=== PATIENT | male | born 1940 | race Caucasian/White ===

== ENCOUNTER 2019-03-18 09:19 | Emergency (ER) | payer OTHER, MEDICARE ==
[~2019-03-18] VITALS: Ht 172.7 cm; Wt 99.8 kg
[2019-03-18 09:25] VITALS: BP_SYST 121
--- NOTE | 2019-03-18 09:25 | NUR ---
Patient to ER bed to gown for evaluation. Side rails up.
--- NOTE | 2019-03-18 09:28 | NUR ---
Patient presented to ER with C/O knee swellin. Patient A&Ox4, arrived to ER via wheelchair with , afebrile, denies pain, left knee swelling, denies N/V/D. Patient states he fell Thursday at home in backyard, Patient states he twisted knee. Patient states health hx Colon Cancer sx, gallbladder sx, cardiac sx. Patient also states he was discharged from [facility] Thursday, 5 day hospital admission for blood transfusion. Patient states he is scheduled for upper GI endoscopy Thursday.
--- NOTE | 2019-03-18 09:39 | NUR ---
DR LAN AT BEDSIDE FOR EVALUATION
--- NOTE | 2019-03-18 09:57 | NUR ---
Radiology staff at bedside for portable x-ray.
--- NOTE | 2019-03-18 11:20 | NUR ---
Patient given written and verbal discharge instructions and verbalizes understanding. ER MD discussed with patient the results and treatment provided. Patient in stable condition. ID arm band removed. No Rx given. Patient educated on pain management and to follow up with PMD. Pain Scale 2/10 tolerable for patient. Opportunity for questions provided and answered. Medication side effect fact sheet provided.
[2019-03-18 11:24] VITALS: BP_SYST 118
== END 2019-03-18 11:20 | disposition home or self-care (01) ==
LOC: SED 09:19
DX: S86.812A Strain of other muscle(s) and tendon(s) at lower leg level, left leg, initial encounter (principal); I10 Essential (primary) hypertension; X50.1XXA Overexertion from prolonged static or awkward postures, initial encounter; Y93.89 Activity, other specified; Y92.89 Other specified places as the place of occurrence of the external cause; Y99.8 Other external cause status
CPT/HCPCS: 73564; 99283

== ENCOUNTER 2020-09-15 12:04 | Emergency (ER) | payer OTHER, MEDICARE ==
[~2020-09-15] VITALS: Ht 172.7 cm; Wt 90.7 kg
[2020-09-15 12:19] VITALS: BP_SYST 150
[2020-09-15 12:46] LABS: BASOPHILS # (AUTO) 0.1 K/uL (0.0-0.2); BASOPHILS % (AUTO) 1.1 % (0.0-2.0); EOSINOPHILS # (AUTO) 0.1 K/uL (0.0-0.4); EOSINOPHILS % (AUTO) 1.4 % (0.0-4.0); HEMATOCRIT 36.7 % (36-54); HEMOGLOBIN 11.4 g/dL (14.0-18.0); LYMPHOCYTES # (AUTO) 0.7 K/uL (1.0-5.5); LYMPHOCYTES % (AUTO) 12.3 % (20.5-51.5); MEAN CORPUSCULAR HEMOGLOBIN 29 pg (27-31); MEAN CORPUSCULAR HGB CONC 31 % (32-36); MEAN CORPUSCULAR VOLUME 94 fL (79.0-98.0); NEUTROPHILS # (AUTO) 3.8 K/uL (1.8-7.7); NEUTROPHILS % (AUTO) 68.2 % (40.0-70.0); PLATELET COUNT (AUTO) 205 K/uL (130-430); RED BLOOD CELL COUNT(AUTO) 3.92 MIL/uL (4.2-6.2); RED CELL DISTRIBUTION WIDTH 16.1 % (9.0-15.0); WHITE BLOOD COUNT (AUTO) 5.6 K/uL (4.8-10.8)
[2020-09-15 13:18] LABS: INR 1.1 (0.80-1.20); PROTHROMBIN TIME 11.5 SECS (9.5-12.5)
[2020-09-15 13:29] LABS: ALANINE AMINOTRANSFERASE 21 U/L (12-78); ALBUMIN 2.6 g/dL (3.4-4.8); AMYLASE 91 U/L (0-100); ANION GAP 9 (5-15); ASPARTATE AMINOTRANSFERASE 21 U/L (10-37); CALCIUM 8.6 mg/dL (8.4-11.0); CHLORIDE 106 mmol/L (98-107); CREATININE 3.43 mg/dL (0.55-1.30); GLUCOSE 90 mg/dL (70-99); LACTATE DEHYDROGENASE 181 U/L (85-227); LIPASE 79 U/L (73-393); POTASSIUM 4.2 mmol/L (3.5-5.1); SODIUM SERUM 142 mmol/L (136-145); TOTAL BILIRUBIN 0.3 mg/dL (0.0-1.0); UREA NITROGEN, BLOOD 63 mg/dL (8-21)
[2020-09-15 13:43] LABS: C-REACTIVE PROTEIN QUANT 4.3 mg/dL (0-0.5)
[2020-09-15] MEDS ORDERED: NACL 0.9% 1,000 ML IV ONE (14:00)
[2020-09-15 14:56] VITALS: BP_SYST 150
== END 2020-09-15 13:30 | disposition left against medical advice (07) ==
LOC: SED 12:04
DX: N28.9 Disorder of kidney and ureter, unspecified (principal); K62.89 Other specified diseases of anus and rectum; I10 Essential (primary) hypertension
CPT/HCPCS: 36415; 74176; 76376; 80053; 82150; 83605; 83615; 83690; 85025; 85610; 85730; 86140; 93005; 96360; 99285; J7030

== ENCOUNTER 2022-01-06 12:56 | Inpatient (IN) | payer OTHER, MEDICARE ==
[~2022-01-06] VITALS: Ht 172.7 cm; Wt 94.8 kg
[2022-01-06 13:01] VITALS: BP_SYST 116
--- NOTE | 2022-01-06 15:15 | NUR ---
PATIENT AMBULATED TO BED 7
--- NOTE | 2022-01-06 15:37 | NUR ---
81YO M PRESENTS WITH SOB AND BILATERAL PEDAL EDEMA AFTER VALVE REPLACEMENT 2 WEEKS AGO. DENIES ANY OTHER SYMPTOMS. ERMD MADE AWARE OF PT STATUS.
--- NOTE | 2022-01-06 15:48 | NUR ---
COVID SWAB DONE. WALKED TO LAB.
[2022-01-06 15:59] LABS: BASOPHILS # (AUTO) 0.1 K/uL (0.0-0.2); HEMOGLOBIN 9.8 g/dL (14.0-18.0); MONOCYTES # (AUTO) 0.6 K/uL (0.0-1.0)
[2022-01-06 16:05] LABS: BASOPHILS % (AUTO) 1.1 % (0.0-2.0); EOSINOPHILS % (AUTO) 0.8 % (0.0-4.0); HEMATOCRIT 33.6 % (36-54); LYMPHOCYTES # (AUTO) 0.6 K/uL (1.0-5.5); LYMPHOCYTES % (AUTO) 10.4 % (20.5-51.5); MEAN CORPUSCULAR HEMOGLOBIN 27 pg (27-31); MEAN CORPUSCULAR HGB CONC 29 % (32-36); MEAN CORPUSCULAR VOLUME 92 fL (79.0-98.0); MONOCYTES % (AUTO) 10.4 % (1.7-9.3); NEUTROPHILS # (AUTO) 4.3 K/uL (1.8-7.7); NEUTROPHILS % (AUTO) 77.3 % (40.0-70.0); RED BLOOD CELL COUNT(AUTO) 3.64 MIL/uL (4.2-6.2); WHITE BLOOD COUNT (AUTO) 5.6 K/uL (4.8-10.8)
[2022-01-06 16:06] LABS: PLATELET COUNT (AUTO) 124 K/uL (130-430)
[2022-01-06 16:07] LABS: INR 1.3 (0.80-1.20); PROTHROMBIN TIME 13.7 SECS (9.5-12.5)
[2022-01-06 16:11] LABS: ANION GAP 9 (5-15); CALCIUM 7.3 mg/dL (8.4-11.0); CHLORIDE 111 mmol/L (98-107); CREATININE 4.03 mg/dL (0.55-1.30); GLUCOSE 99 mg/dL (70-99); POTASSIUM 4.7 mmol/L (3.5-5.1); SODIUM SERUM 144 mmol/L (136-145); UREA NITROGEN, BLOOD 66 mg/dL (8-21)
[2022-01-06 16:16] LABS: ALANINE AMINOTRANSFERASE 11 U/L (12-78); ALBUMIN 2.4 g/dL (3.4-4.8); ASPARTATE AMINOTRANSFERASE 18 U/L (10-37); TOTAL BILIRUBIN 0.3 mg/dL (0.0-1.0)
[2022-01-06] MEDS ORDERED: FUROSEMIDE 40 MG/4 ML VIAL IVP ONE (17:15)
[2022-01-06] MEDS ORDERED: AMIO200T61 PO (17:37)
[2022-01-06] MEDS ORDERED: ERGO50CA (17:43)
[2022-01-06] MEDS ORDERED: COLC0.6T67 PO (17:43)
[2022-01-06] MEDS ORDERED: INSU100V9 SQ (17:43)
[2022-01-06] MEDS ORDERED: LIP20 PO (17:43)
[2022-01-06] MEDS ORDERED: LEVO25TA7 PO (17:43)
[2022-01-06] MEDS ORDERED: ALLO100T PO (17:43)
[2022-01-06] MEDS ORDERED: HYDR-4037 PO (17:43)
[2022-01-06] MEDS ORDERED: ASPI-989 PO (17:43)
[2022-01-06] MEDS ORDERED: NEU300 PO (17:43)
[2022-01-06] MEDS ORDERED: SODI5POW2 PO (17:43)
[2022-01-06] MEDS ORDERED: CARV25TA55 PO (17:43)
[2022-01-06] MEDS ORDERED: FERR236T3 PO (17:43)
[2022-01-06] MEDS ORDERED: PRO40 PO (17:43)
--- NOTE | 2022-01-06 17:54 | NUR ---
Admit bed requested Patient will be admitted to care of . Admitted to TELEMETRY unit. Diagnosis CHF EXACERBATION Inpatient (Yes or No) Y Observation (Yes or No) N Orientation concerns or request close to nursing station (Yes or No) N Covid Status NEG On vent or bipap N Isolation requirements N Needs a sitter N From Home (Yes or if No enter name of facility) HOME Requires Dialysis (Yes or No) N Med Rec Completed (Yes of No) Y
[2022-01-06] MEDS ORDERED: MORPHINE 2 MG/ML INJ. SYRINGE IVP PRN ×2 (18:30)
[2022-01-06] MEDS ORDERED: ZOLPIDEM TARTRATE 5 MG TABLET PO PRN (18:30)
[2022-01-06] MEDS ORDERED: MUPIROCIN 2% TOPICAL OINTMENT 22 GM NS PRN (18:30)
[2022-01-06] MEDS ORDERED: MAGNESIUM SULFATE 50 ML IV PRN (18:30)
[2022-01-06] MEDS ORDERED: DEXTROSE 50% JECT 50 ML DISP.SYRIN IVP PRN (18:30)
[2022-01-06] MEDS ORDERED: NALOXONE HCL 0.4 MG/ML AMP (NARCAN) IVP PRN ×2 (18:30)
[2022-01-06] MEDS ORDERED: ACETAMINOPHEN 325 MG TABLET PO PRN (18:30)
[2022-01-06] MEDS ORDERED: LORazepam 2 MG/ML VIAL IVP PRN (18:30)
[2022-01-06] MEDS ORDERED: DOCUSATE SODIUM 100 MG CAPSULE PO PRN (18:30)
[2022-01-06] MEDS ORDERED: ONDANSETRON HCL 4 MG/2 ML VIAL IVP PRN (18:30)
[2022-01-06] MEDS ORDERED: POTASSIUM CHLORIDE 20 MEQ TAB.PRT.SR PO PRN (18:30)
[2022-01-06] MEDS: NACL 0.9% 1,000 ML IV SCH (19:07)
--- NOTE | 2022-01-06 19:15 | NUR ---
REPORT GIVEN TO ROSY LOMELI. ALL CARES TRANSFERRED AT THIS TIME.
--- NOTE | 2022-01-06 19:40 | NUR ---
ASSUME CARE OF THIS PT AAOX4 AT THIS TIME HERE FOR SOB EXACERNATION. NOTED EDEMA ON BLE +4 PITTING, PER PT SWELLING STARTED 2 MOS AGO. DENIES CHEST PAIN AT THIS TIME, HE STATED THAT THERE ARE TIMES THAT HE IS SOB. PROVIDED FOOD AT THIS TIME, REPORT RECEIVED THAT PT HAS HX OF DM. UPDATED PT ON PLAN OF CARE. WILL CONTINUE TO MONITOR.
[2022-01-06] MEDS ORDERED: [UNRECOGNIZED DRUG - REMARK] XX SCH (20:07)
[2022-01-06] MEDS: AMIODARONE HCL 200 MG TABLET PO SCH (21:00)
[2022-01-06] MEDS: hydrALAZINE HCL 25 MG TABLET PO SCH (21:00)
--- NOTE | 2022-01-06 23:17 | NUR ---
TRANSFER PT VIA MANE RAMIREZ, NOT IN ANY DISTRESS UPON TRANSFER. BEDSIDE REPORT GIVEN TO CARL AND ENDORSED PT AT BEDSIDE.
--- NOTE | 2022-01-06 23:30 | NUR ---
ADMISSION NOTE Received patient from ER via gurney. Patient admitted with diagnosis of CHF Exacerbation. Patient is awake, alert, oriented X 3. Patient oriented to hospital room, call light, toileting, pain management and safety-teach back done. Patient informed that Lj Kelsey will be nurse and that their room number is [id number]. Personal belongings checked and Belongings List documented. Call light within reach.
[2022-01-06] MEDS: GABAPENTIN 300 MG CAPSULE PO SCH (23:59)
[2022-01-06] MEDS: HEPARIN SODIUM,PORCINE 5,000 UNITS/ML VIAL SUBCUT SCH (23:59)
[2022-01-06] MEDS: CARVEDILOL 25 MG TABLET (COREG) PO SCH (23:59)
[2022-01-07 00:02] VITALS: BP_SYST 117
--- NOTE | 2022-01-07 01:00 | NUR ---
PATIENT RESTING: Patient resting quietly. No acute distress noted. Vital signs within normal range.
[2022-01-07] MEDS: LEVOTHYROXINE SODIUM 0.025 MG TABLET PO SCH (06:08)
[2022-01-07 06:21] LABS: BASOPHILS # (AUTO) 0.1 K/uL (0.0-0.2); BASOPHILS % (AUTO) 0.9 % (0.0-2.0); EOSINOPHILS % (AUTO) 0.7 % (0.0-4.0); HEMATOCRIT 32.7 % (36-54); HEMOGLOBIN 9.7 g/dL (14.0-18.0); LYMPHOCYTES # (AUTO) 0.6 K/uL (1.0-5.5); LYMPHOCYTES % (AUTO) 9.7 % (20.5-51.5); MEAN CORPUSCULAR HEMOGLOBIN 28 pg (27-31); MEAN CORPUSCULAR HGB CONC 30 % (32-36); MEAN CORPUSCULAR VOLUME 92 fL (79.0-98.0); MONOCYTES # (AUTO) 0.6 K/uL (0.0-1.0); NEUTROPHILS # (AUTO) 5.3 K/uL (1.8-7.7); NEUTROPHILS % (AUTO) 79.7 % (40.0-70.0); PLATELET COUNT (AUTO) 111 K/uL (130-430); RED BLOOD CELL COUNT(AUTO) 3.53 MIL/uL (4.2-6.2); RED CELL DISTRIBUTION WIDTH 19.7 % (9.0-15.0); WHITE BLOOD COUNT (AUTO) 6.6 K/uL (4.8-10.8)
[2022-01-07 06:42] LABS: ANION GAP 9 (5-15); CALCIUM 8.1 mg/dL (8.4-11.0); CHLORIDE 108 mmol/L (98-107); CREATININE 3.98 mg/dL (0.55-1.30); GLUCOSE 133 mg/dL (70-99); POTASSIUM 5.2 mmol/L (3.5-5.1); SODIUM SERUM 138 mmol/L (136-145); UREA NITROGEN, BLOOD 68 mg/dL (8-21)
--- NOTE | 2022-01-07 06:54 | NUR ---
CLOSING NOTES: Patient is in bed resting no s/s of distress is noted. Patient is able to verbalize needs. Chest rise is even and unlabored on 2L via NC. Patient is on tele monitoring with NSR. Patient is orientated to the call light and all current shift needs have been met at this time. Safety measures are currently in place as per protocol. Will differ current care to AM shift for continuity of care.
--- NOTE | 2022-01-07 07:30 | NUR ---
OPENING NOTES: Received patient in bed asleep, bed alarm on, side rails up for safety, call light within reach, no signs of discomfort noted. Will continue to monitor.
[2022-01-07 07:45] VITALS: BP_SYST 133
[2022-01-07] MEDS: AMIODARONE HCL 200 MG TABLET PO SCH ×2 (08:55→21:00)
[2022-01-07] MEDS: PANTOPRAZOLE SODIUM 40 MG TAB PO SCH (08:55)
[2022-01-07] MEDS: CARVEDILOL 25 MG TABLET (COREG) PO SCH ×2 (08:56→21:00)
[2022-01-07] MEDS: ASPIRIN 81 MG TAB.CHEW PO SCH (08:56)
[2022-01-07] MEDS: hydrALAZINE HCL 25 MG TABLET PO SCH ×3 (08:56→21:00)
[2022-01-07] MEDS: ATORVASTATIN 20 MG TABLET PO SCH (08:57)
[2022-01-07] MEDS: GABAPENTIN 300 MG CAPSULE PO SCH ×2 (08:57→21:57)
[2022-01-07] MEDS: ALLOPURINOL 100 MG TABLET (ZYLOPRIM) PO SCH (08:57)
[2022-01-07] MEDS ORDERED: COLCHICINE 0.6 MG TABLET PO SCH (09:00)
[2022-01-07] MEDS: HEPARIN SODIUM,PORCINE 5,000 UNITS/ML VIAL SUBCUT SCH ×2 (09:08→22:00)
[2022-01-07] MEDS: FUROSEMIDE 20 MG/2 ML VIAL IVP SCH (09:22)
[2022-01-07 09:24] LABS: INR 1.3 (0.80-1.20); PROTHROMBIN TIME 13.3 SECS (9.5-12.5)
[2022-01-07] MEDS: NACL 0.9% 1,000 ML IV SCH (11:18)
[2022-01-07 11:20] VITALS: BP_SYST 137
--- NOTE | 2022-01-07 13:00 | NUR ---
NURSING NOTE: Provided incontinence care, kept patient clean and dry, used urinal. Safety precaution observed, side rails up, bed alarm on, call light kept within reach. Will continue to monitor
[2022-01-07 15:20] VITALS: BP_SYST 98
--- NOTE | 2022-01-07 18:18 | NUR ---
PICC LINE OK TO USE: As per Nurse ROSY Hicks. PICC line OK to use, Rt. upper arm, 2-lumen
--- NOTE | 2022-01-07 19:05 | NUR ---
CLOSING NOTES: Patient alert, oriented, verbally responsive. Kept clean and dry, turned and repositioned for comfort, PICC line on right upper arm, 2 lumen, patent. Safety precaution observed, bed alarm on, side rails up, call light within reach. Will continue to monitor until restaurant shift supervisor RN.
[2022-01-07 20:56] VITALS: BP_SYST 97
[2022-01-08] VITALS (16 sets, daily range): BP systolic 85–143
[2022-01-08] MEDS: NACL 0.9% 1,000 ML IV SCH ×2 (05:39→21:31)
[2022-01-08] MEDS: LEVOTHYROXINE SODIUM 0.025 MG TABLET PO SCH (06:34)
[2022-01-08 06:54] LABS: BASOPHILS # (AUTO) 0.1 K/uL (0.0-0.2); BASOPHILS % (AUTO) 0.8 % (0.0-2.0); EOSINOPHILS % (AUTO) 0.3 % (0.0-4.0); HEMATOCRIT 33.9 % (36-54); HEMOGLOBIN 9.7 g/dL (14.0-18.0); LYMPHOCYTES # (AUTO) 0.4 K/uL (1.0-5.5); LYMPHOCYTES % (AUTO) 4.7 % (20.5-51.5); MEAN CORPUSCULAR HEMOGLOBIN 28 pg (27-31); MEAN CORPUSCULAR HGB CONC 29 % (32-36); MEAN CORPUSCULAR VOLUME 96 fL (79.0-98.0); MONOCYTES # (AUTO) 0.4 K/uL (0.0-1.0); MONOCYTES % (AUTO) 5.7 % (1.7-9.3); NEUTROPHILS # (AUTO) 6.9 K/uL (1.8-7.7); NEUTROPHILS % (AUTO) 88.5 % (40.0-70.0); PLATELET COUNT (AUTO) 92 K/uL (130-430); RED BLOOD CELL COUNT(AUTO) 3.54 MIL/uL (4.2-6.2); RED CELL DISTRIBUTION WIDTH 19.9 % (9.0-15.0); WHITE BLOOD COUNT (AUTO) 7.8 K/uL (4.8-10.8)
--- NOTE | 2022-01-08 07:31 | NUR ---
REPORT/SBAR GIVEN TO CHARGE NURSE. DAY RN LATE
[2022-01-08 07:41] LABS: ALANINE AMINOTRANSFERASE 13 U/L (12-78); ALBUMIN 2.6 g/dL (3.4-4.8); ASPARTATE AMINOTRANSFERASE 17 U/L (10-37); CALCIUM 7.8 mg/dL (8.4-11.0); CREATININE 4.65 mg/dL (0.55-1.30); GLUCOSE 124 mg/dL (70-99); TOTAL BILIRUBIN 0.3 mg/dL (0.0-1.0); TRIGLYCERIDES 80 mg/dL (30-150); UREA NITROGEN, BLOOD 72 mg/dL (8-21)
[2022-01-08 07:42] LABS: CHOLESTEROL 97 mg/dL (<200); HDL CHOLESTEROL 32 mg/dL (>45); LDL CHOLESTEROL 51 mg/dL (<100)
[2022-01-08 08:35] LABS: ANION GAP 11 (5-15); CHLORIDE 108 mmol/L (98-107); SODIUM SERUM 138 mmol/L (136-145); THYROID STIMULATING HORMONE 2.94 uIu/mL (0.34-4.82)
[2022-01-08 08:36] LABS: POTASSIUM 6.2 mmol/L (3.5-5.1)
--- NOTE | 2022-01-08 08:58 | NUR ---
HIGH ALERT NOTE: VERBAL ORDER BY Dr. ARAYA WHO IS identified within the medical roster to verify physician authenticity FOR REGULAR INSULIN 10 UNITS IV PUSH .
[2022-01-08] MEDS ORDERED: SODIUM POLYSTYRENE SULFONATE 15 GM/60 ML UDBTL PO ONE (09:00)
[2022-01-08] MEDS ORDERED: COLCHICINE 0.6 MG TABLET PO SCH ×2 (09:00)
[2022-01-08] MEDS ORDERED: DEXTROSE 50% JECT 50 ML DISP.SYRIN IVP ONE (09:00)
[2022-01-08] MEDS: CARVEDILOL 12.5 MG TABLET (COREG) PO SCH ×2 (09:00→21:00)
[2022-01-08] MEDS: AMIODARONE HCL 200 MG TABLET PO SCH ×2 (09:00→21:32)
[2022-01-08] MEDS: FUROSEMIDE 20 MG/2 ML VIAL IVP SCH (09:00)
[2022-01-08] MEDS ORDERED: INSULIN REGULAR, HUMAN 100 UNITS/ML, 10 ML VIAL IV ONE (09:00)
--- NOTE | 2022-01-08 09:00 | NUR ---
RECEIVED CALL FROM LAB POTASSIUM 6.2. NOTIFIED DR. ARAYA. NEW ORDERS RECEIVED.
[2022-01-08] MEDS: ALLOPURINOL 100 MG TABLET (ZYLOPRIM) PO SCH (09:32)
[2022-01-08] MEDS: ASPIRIN 81 MG TAB.CHEW PO SCH (09:33)
[2022-01-08] MEDS: PANTOPRAZOLE SODIUM 40 MG TAB PO SCH (09:33)
[2022-01-08] MEDS: GABAPENTIN 300 MG CAPSULE PO SCH (09:33)
[2022-01-08] MEDS: ATORVASTATIN 20 MG TABLET PO SCH (09:33)
[2022-01-08] MEDS: HEPARIN SODIUM,PORCINE 5,000 UNITS/ML VIAL SUBCUT SCH ×2 (09:37→21:34)
--- NOTE | 2022-01-08 09:50 | NUR ---
DR. ARAYA AT BEDSIDE. ASSESSED RECTAL AREA.
--- NOTE | 2022-01-08 09:50 | NUR ---
AM HEAD TO TOE ASSESSMENT COMPLETED.AWAKE ALERT ORIENTED TO NAME AND DATE OF . BLUE RUBBER ITEM FOUND SUTURED TO RECTUM AREA. PT STATED HE DID NOT KNOW WHY THE SUTURE WAS THERE.CALLED FAMILY, SON INFORMED ME PT HAD RECENT SURGERY TO REMOVE A RECTAL ABSCESS. BP 88/42 IN SITTING POSITION. STRAINER TENDER AT BEDSIDE STATED PT SHOULD BE TRANSFERRED TO UNIT.PLACED PT IN REVERSE [place] POSITION. BP REASSESSED 100/53 MAP 71. EDEMA NOTED TO FACE AND BILATERAL UPPER EXTREMITIES AWAITING ICU TRANSFER ORDER.
[2022-01-08] MEDS ORDERED: ALBUMIN HUMAN 25% 100 ML IV ONE ×2 (10:15→11:01)
[2022-01-08] MEDS ORDERED: PIPERACILLIN/TAZO 3.375/DEX-IS 50 ML IV SCH (10:15)
--- NOTE | 2022-01-08 10:15 | NUR ---
PT TRANSFERRED TO ICU OVERFLOW ROOM 127 B.TWO RN'S ONE TECH PRESENT DURING TRANSFER. BEDSIDE REPORT GIVEN TO ALMAS GALLEGOS. ALL QUESTIONS ANSWERED.
--- NOTE | 2022-01-08 10:25 | NUR ---
TO ICU RECEIVED PT IN ROOM 127-B, HE'S LETHARGIC, ANSWERS SOME QUESTIONS, HARD OF HEARING, O2 AT 3L VIA NASAL CANNULA, EDEMA TO ALL EXTREMITIES, DISCOLORED ARM AND LEGS, PT HAS A PICC LINE IN RIGHT UPPER ARM, DRESSING MOIST UNDER THE COVER, BLOODY COLOR, PT'S BLOOD PRESSURE 99/47, HEART RATE 59.
[2022-01-08] MEDS ORDERED: NOREPINEPHRINE BITARTRATE 16 MG in NS 234 ML IV PRN (11:00)
--- NOTE | 2022-01-08 11:00 | NUR ---
PT TRANSFERRED TO ICU
--- NOTE | 2022-01-08 11:00 | NUR ---
CM: Transfer to higher level of care: [facility] : per Adraine/admitting dept. Hospital in on Census red alert, not aceepting any transfer. [facility]: per theo Giles sup: not accepting any transfer dt over saturation and many pt waiting for bed in ER.
--- NOTE | 2022-01-08 11:30 | NUR ---
FAMILY PT'S SPEAKING TO HIS SON JOSIAH. HIS SON BROUGHT OUT A PAIR OF HEARING AID FROM PT'S BELONGING BAG AND PLACED IT TO PT'S EARS.
[2022-01-08 11:33] LABS: BASOPHILS % (AUTO) 0.6 % (0.0-2.0); EOSINOPHILS % (AUTO) 0.2 % (0.0-4.0); HEMATOCRIT 34.1 % (36-54); HEMOGLOBIN 9.7 g/dL (14.0-18.0); LYMPHOCYTES # (AUTO) 0.2 K/uL (1.0-5.5); LYMPHOCYTES % (AUTO) 3.5 % (20.5-51.5); MEAN CORPUSCULAR HEMOGLOBIN 27 pg (27-31); MEAN CORPUSCULAR HGB CONC 29 % (32-36); MEAN CORPUSCULAR VOLUME 96 fL (79.0-98.0); MONOCYTES # (AUTO) 0.1 K/uL (0.0-1.0); MONOCYTES % (AUTO) 1.9 % (1.7-9.3); NEUTROPHILS # (AUTO) 6.6 K/uL (1.8-7.7); NEUTROPHILS % (AUTO) 93.8 % (40.0-70.0); PLATELET COUNT (AUTO) 80 K/uL (130-430); RED BLOOD CELL COUNT(AUTO) 3.55 MIL/uL (4.2-6.2); RED CELL DISTRIBUTION WIDTH 20.4 % (9.0-15.0)
[2022-01-08 11:58] LABS: ANION GAP 8 (5-15); CALCIUM 7.2 mg/dL (8.4-11.0); CHLORIDE 114 mmol/L (98-107); CREATININE 4.98 mg/dL (0.55-1.30); GLUCOSE 167 mg/dL (70-99); POTASSIUM 5.4 mmol/L (3.5-5.1); SODIUM SERUM 146 mmol/L (136-145); UREA NITROGEN, BLOOD 76 mg/dL (8-21)
--- NOTE | 2022-01-08 12:04 | NUR ---
AWAIT NEW PHYSICAL THERAPY ORDER WHEN THE PATIENT'S MEDICAL STATUS IMPROVES.
[2022-01-08] MEDS: PIPERACILLIN/TAZO 2.25G/DEX-IS 50 ML IV SCH ×2 (12:42→17:43)
--- NOTE | 2022-01-08 13:00 | NUR ---
CM: Communication with dtr/Dr Maximo Shah and Dr Wright: to transfer pt to higher level of care to [facility] under dr. Fritz/Dr Chris Whelan. , to [facility] under dr. Chris Whelan and to [facility].
[2022-01-08] MEDS ORDERED: NS 250 ML IV ONE (13:30)
[2022-01-08] MEDS ORDERED: hydrALAZINE HCL 25 MG TABLET PO SCH (14:00)
--- NOTE | 2022-01-08 14:08 | NUR ---
CM: [facility]: faxed clinical to the transfer ctr with confirmed receipt, fax # [phone], tel [phone]. Per Zohra : will send all docs to nurse review. She will call back with up date. CM will f/u later as well.
--- NOTE | 2022-01-08 15:30 | NUR ---
FAMILY PT'S SISTER RIZWAN CAME IN TO VISIT. SHE STATED THAT PT LOVES BEING OUTSIDE, GARDENING, HIS SKIN COLOR HAD SUNBURN.
[2022-01-08 15:35] LABS: ANION GAP 8 (5-15); CALCIUM 7.5 mg/dL (8.4-11.0); CHLORIDE 112 mmol/L (98-107); CREATININE 4.95 mg/dL (0.55-1.30); GLUCOSE 108 mg/dL (70-99); POTASSIUM 5.5 mmol/L (3.5-5.1); SODIUM SERUM 145 mmol/L (136-145); UREA NITROGEN, BLOOD 76 mg/dL (8-21)
--- NOTE | 2022-01-08 17:30 | NUR ---
HYGIENE PT HAD DARK COLOR STOOL, GOOD PERINEAL CARE RENDERED.
--- NOTE | 2022-01-08 17:35 | NUR ---
[facility]. A CALL WAS RECEIVED FROM [facility], REVIEWING THE PATIENT'S LATEST VITAL SIGNS, MEDS AND LABS. SHE WILL REFER THE PATIENT TO CARDIOLOGY DEPT.
--- NOTE | 2022-01-08 19:40 | NUR ---
PM SHIFT ASSESSMENT Patient is asleep in bed, no s/s of acute distress or SOB noted. SR on the monitor. Skin warm and dry. IVF infusing to EMA PICCLINE, no s/s of infiltration noted. Safety precautions in place, call light within reach. Will continue to monitor.
[2022-01-09] VITALS (29 sets, daily range): BP systolic 93–179
[2022-01-09] MEDS: PIPERACILLIN/TAZO 2.25G/DEX-IS 50 ML IV SCH ×2 (00:22→06:10)
[2022-01-09 06:58] LABS: ANION GAP 11 (5-15); CHLORIDE 114 mmol/L (98-107); GLUCOSE 84 mg/dL (70-99); SODIUM SERUM 147 mmol/L (136-145); UREA NITROGEN, BLOOD 78 mg/dL (8-21)
[2022-01-09] MEDS: LEVOTHYROXINE SODIUM 0.025 MG TABLET PO SCH (06:58)
[2022-01-09 07:02] LABS: BASOPHILS % (AUTO) 0.3 % (0.0-2.0); EOSINOPHILS % (AUTO) 0.1 % (0.0-4.0); HEMATOCRIT 32.4 % (36-54); HEMOGLOBIN 9.5 g/dL (14.0-18.0); LYMPHOCYTES # (AUTO) 0.3 K/uL (1.0-5.5); LYMPHOCYTES % (AUTO) 2.7 % (20.5-51.5); MEAN CORPUSCULAR HEMOGLOBIN 28 pg (27-31); MEAN CORPUSCULAR HGB CONC 29 % (32-36); MEAN CORPUSCULAR VOLUME 94 fL (79.0-98.0); MONOCYTES # (AUTO) 0.6 K/uL (0.0-1.0); MONOCYTES % (AUTO) 5.8 % (1.7-9.3); NEUTROPHILS # (AUTO) 9.9 K/uL (1.8-7.7); NEUTROPHILS % (AUTO) 91.1 % (40.0-70.0); PLATELET COUNT (AUTO) 81 K/uL (130-430); RED BLOOD CELL COUNT(AUTO) 3.44 MIL/uL (4.2-6.2); RED CELL DISTRIBUTION WIDTH 19.9 % (9.0-15.0); WHITE BLOOD COUNT (AUTO) 10.9 K/uL (4.8-10.8)
--- NOTE | 2022-01-09 07:10 | NUR ---
DR. ARAYA HERE TO SEE PATIENT, NEW ORDERS GIVEN WILL CARRY OUT.
--- NOTE | 2022-01-09 07:25 | NUR ---
ENDORSEMENT PATIENT CARE ENDORSED TO LEODAN GALLEGOS.
[2022-01-09 08:18] LABS: CALCIUM 7.7 mg/dL (8.4-11.0)
[2022-01-09 08:24] LABS: INR 1.4 (0.80-1.20); PROTHROMBIN TIME 14.3 SECS (9.5-12.5)
--- NOTE | 2022-01-09 09:11 | NUR ---
CM: COLT: updated clinical and faxed meds list, labs, Covid 19 report to [facility] transfer ctr [phone]. The referral is being review by engineer and geologist, no accepting md yet. >> [facility]: October/ r's stated she spoke with dr. Lee/engineer and geologist last night, the md is accepting the pt at [facility] and requesting to fax the referral package to [facility] today. I s/w Amena / admitting dept stated , not taking any transfer or direct admission, not taking any fax referral. Stated the doctor can call him, still not taking any admission at this time due to code red on census.
--- NOTE | 2022-01-09 09:21 | NUR ---
Called Dr. Lj Bassett with a consult,spoke with Jeny from doctors office
--- NOTE | 2022-01-09 09:23 | NUR ---
Dr. Briones M aware of consult,he will be here this afternoon
--- NOTE | 2022-01-09 09:25 | NUR ---
Called Dr. Cooper with a consult, spoke with Soha from the exchange
[2022-01-09] MEDS ORDERED: CLINDAMYCIN 900 MG in D5W 100 ML IV SCH (09:30)
[2022-01-09] MEDS ORDERED: CLINDAMYCIN PHOS 900 MG/ D5W 50 ML PREMIX IV SCH (10:55)
[2022-01-09] MEDS ORDERED: CEFEPIME 2 GM in D5W 100 ML IV SCH (11:00)
[2022-01-09 11:12] LABS: ALBUMIN 2.9 g/dL (3.4-4.8); BILIRUBIN,DIRECT 0.2 mg/dL (0.0-0.3); TOTAL BILIRUBIN 0.3 mg/dL (0.0-1.0)
[2022-01-09] MEDS: FUROSEMIDE 20 MG/2 ML VIAL IVP SCH (11:33)
[2022-01-09] MEDS: ASPIRIN 81 MG TAB.CHEW PO SCH (11:34)
[2022-01-09] MEDS: AMIODARONE HCL 200 MG TABLET PO SCH ×2 (11:34→22:12)
[2022-01-09] MEDS: PANTOPRAZOLE SODIUM 40 MG TAB PO SCH (11:35)
[2022-01-09] MEDS: ATORVASTATIN 20 MG TABLET PO SCH (11:35)
[2022-01-09] MEDS: CARVEDILOL 12.5 MG TABLET (COREG) PO SCH ×2 (11:35→22:13)
[2022-01-09] MEDS: NACL 0.9% 1,000 ML IV SCH ×2 (11:36→20:46)
[2022-01-09] MEDS: ALLOPURINOL 100 MG TABLET (ZYLOPRIM) PO SCH (11:36)
[2022-01-09] MEDS: HEPARIN SODIUM,PORCINE 5,000 UNITS/ML VIAL SUBCUT SCH ×2 (11:39→22:16)
[2022-01-09] MEDS: CEFEPIME 1 GM in D5W 50 ML IV SCH (11:59)
[2022-01-09] MEDS ORDERED: VANCOMYCIN HCL 1 GM/NS PREMIX 250 ML IV ONE (13:00)
[2022-01-09] MEDS: metroNIDAZOLE 500 mg/NS 100 ML IV SCH ×2 (14:53→22:16)
--- NOTE | 2022-01-09 20:01 | NUR ---
@1915 Assumed pt care received bedside report from Preston RN, pt awake alert follows command but confused alert to self/ person reorientation to immediate enviroment education on care plan passive to non paying attention, bed in low position call light at reach encourage to call for help, door open close monitoring for safety as at this time pt's vitals signs stable, on room air O2 SAT 100% no sign of shortness of breadth noted, pt Hemodialysed today as report received but Oliguric lake in place as per MD'S order ongoing support at the bedside to alleviates anxiety. Pt's daughter October called updates given over the phone also spoke to pt and he recognized her voice confirmed her name.
--- NOTE | 2022-01-09 23:30 | NUR ---
Pt's blood sugar was 65, juice and dinner snacks provided and blood sugar rechecked was 97 pt asymptomatic vitals signs stable afebrile and no complain. Complete bed bath with CHG given pt tolerated well, repositioned for comfort heel elevated on pillow.
[2022-01-10] VITALS (28 sets, daily range): BP systolic 89–154
--- NOTE | 2022-01-10 04:04 | NUR ---
Pt. was deep asleep blood pressure dropped low 74/37 HR 66 hardly to be arouse, rechecked agai HR 63 B/P 96/38 and blood sugar rechecked was 77 and pt said he is okay and fell back asleep will continue to monitor and treat
[2022-01-10] MEDS: NACL 0.9% 1,000 ML IV SCH (05:23)
[2022-01-10] MEDS: metroNIDAZOLE 500 mg/NS 100 ML IV SCH ×3 (05:23→21:47)
[2022-01-10] MEDS: LEVOTHYROXINE SODIUM 0.025 MG TABLET PO SCH (06:05)
[2022-01-10 06:07] LABS: BASOPHILS # (AUTO) 0.1 K/uL (0.0-0.2); EOSINOPHILS % (AUTO) 0.2 % (0.0-4.0); HEMATOCRIT 26.9 % (36-54); LYMPHOCYTES # (AUTO) 0.5 K/uL (1.0-5.5); LYMPHOCYTES % (AUTO) 8.7 % (20.5-51.5); MEAN CORPUSCULAR HEMOGLOBIN 28 pg (27-31); MEAN CORPUSCULAR HGB CONC 30 % (32-36); MEAN CORPUSCULAR VOLUME 93 fL (79.0-98.0); MONOCYTES # (AUTO) 0.5 K/uL (0.0-1.0); MONOCYTES % (AUTO) 7.8 % (1.7-9.3); NEUTROPHILS # (AUTO) 5.1 K/uL (1.8-7.7); NEUTROPHILS % (AUTO) 82.3 % (40.0-70.0); PLATELET COUNT (AUTO) 50 K/uL (130-430); RED BLOOD CELL COUNT(AUTO) 2.89 MIL/uL (4.2-6.2); RED CELL DISTRIBUTION WIDTH 20.1 % (9.0-15.0); WHITE BLOOD COUNT (AUTO) 6.2 K/uL (4.8-10.8)
[2022-01-10 06:26] LABS: ANION GAP 11 (5-15); CHLORIDE 107 mmol/L (98-107); CREATININE 4.63 mg/dL (0.55-1.30); GLUCOSE 75 mg/dL (70-99); SODIUM SERUM 141 mmol/L (136-145); UREA NITROGEN, BLOOD 36 mg/dL (8-21)
--- NOTE | 2022-01-10 07:15 | NUR ---
Bedside report given to GRACIE GALLEGOS change of shift for continuity of care as at this time pt asleep, restarted back on Levophed drip and no changes in care plan and pt's condition.
--- NOTE | 2022-01-10 07:20 | NUR ---
DR Lj Calhoun called wants patient to remain NPO. Will place Tunnel Hemodialysis catheter later today.
--- NOTE | 2022-01-10 07:35 | NUR ---
Updates Dr Diego about pt's low blood sugar 65, 97, 77, 67 D50 IVP given later 109 this morning was 85 pt asymptomatic restful no complain, but low appetite also to no desire to eat. Order received to D/C main IV Fluids NS @100ML/HRand start D10W @40ml/hr and to continue fingerstick as previously ordered Preston RN is aware and said he follow up. Dr Marsh and Dr Wright was here updates on pt's condition and ongoing treatments no new order received as at this time.
[2022-01-10 08:06] LABS: HEPATITIS B SURFACE AG Negative (Negative); HEPATITIS C VIRUS AB 0.1 s/co ratio (0.0-0.9)
[2022-01-10 09:09] LABS: CALCIUM 6.5 mg/dL (8.4-11.0)
[2022-01-10] MEDS: D10W 1,000 ML IV SCH (09:31)
[2022-01-10] MEDS: AMIODARONE HCL 200 MG TABLET PO SCH ×2 (09:32→21:40)
[2022-01-10] MEDS: FUROSEMIDE 20 MG/2 ML VIAL IVP SCH (09:32)
[2022-01-10] MEDS: CARVEDILOL 12.5 MG TABLET (COREG) PO SCH ×2 (09:33→21:41)
[2022-01-10] MEDS: ASPIRIN 81 MG TAB.CHEW PO SCH (09:33)
[2022-01-10] MEDS: ATORVASTATIN 20 MG TABLET PO SCH (09:34)
[2022-01-10] MEDS: PANTOPRAZOLE SODIUM 40 MG TAB PO SCH (09:34)
[2022-01-10] MEDS: ALLOPURINOL 100 MG TABLET (ZYLOPRIM) PO SCH (09:34)
[2022-01-10] MEDS: HEPARIN SODIUM,PORCINE 5,000 UNITS/ML VIAL SUBCUT SCH ×2 (10:02→21:41)
[2022-01-10] MEDS: CEFEPIME 1 GM in D5W 50 ML IV SCH (12:03)
--- NOTE | 2022-01-10 19:12 | NUR ---
Change of shift report received from Preston GALLEGOS for continuity of care. As per report received from Preston GALLEGOS that pt said that 'he is tired of all the medical treatments" pt's daughter October is aware and Dr CARRANZA stopped to place the HD perm cath today.
--- NOTE | 2022-01-10 20:10 | NUR ---
Met pt awake alert oriented x3 denies pain vitals stable, he complained that he was hungry and wants to drink apple juice. Patient being NPO for almost whole day plan was insertion of HD perm cath by Dr CARRANZA. Further assessment of pt's desire that if he wants everything done including hemodialysis, pt answered YES that his son JOSIAH FERRER also can make decision for him and he wants to speak to him. Attempts made twice on the phone to reach JOSIAH but it went to voice mail and pt left messages for him to call back. Lawson sandwich with apple juice provided as per pt's preference and he ate 50 %. Nena skin care done, linen changed and pt repositioned for comfort.
[2022-01-11] VITALS (28 sets, daily range): BP systolic 93–145
[2022-01-11] MEDS: metroNIDAZOLE 500 mg/NS 100 ML IV SCH ×3 (06:25→21:52)
[2022-01-11] MEDS: LEVOTHYROXINE SODIUM 0.025 MG TABLET PO SCH (06:25)
[2022-01-11] MEDS: D10W 1,000 ML IV SCH (06:25)
[2022-01-11 07:10] LABS: ALANINE AMINOTRANSFERASE 6 U/L (12-78); ALBUMIN 2.2 g/dL (3.4-4.8); ANION GAP 8 (5-15); ASPARTATE AMINOTRANSFERASE 16 U/L (10-37); CHLORIDE 103 mmol/L (98-107); CREATININE 4.08 mg/dL (0.55-1.30); GLUCOSE 103 mg/dL (70-99); PHOSPHORUS 6.5 mg/dL (2.7-4.5); SODIUM SERUM 139 mmol/L (136-145); TOTAL BILIRUBIN 0.3 mg/dL (0.0-1.0); UREA NITROGEN, BLOOD 43 mg/dL (8-21)
--- NOTE | 2022-01-11 07:19 | NUR ---
Change of shift report to GRACIE GALLEGOS for continuity of care emphasis that pt wants his son JOSIAH to make decision for him so no changes in care plan and condition. Vitals signs stable no distress restful all the shift tolerates well all care and treatments.
[2022-01-11 07:42] LABS: BASOPHILS # (AUTO) 0.1 K/uL (0.0-0.2); EOSINOPHILS % (AUTO) 0.8 % (0.0-4.0); HEMATOCRIT 29.1 % (36-54); HEMOGLOBIN 8.5 g/dL (14.0-18.0); LYMPHOCYTES # (AUTO) 0.6 K/uL (1.0-5.5); LYMPHOCYTES % (AUTO) 12.8 % (20.5-51.5); MEAN CORPUSCULAR HEMOGLOBIN 28 pg (27-31); MEAN CORPUSCULAR HGB CONC 29 % (32-36); MEAN CORPUSCULAR VOLUME 95 fL (79.0-98.0); MONOCYTES # (AUTO) 0.8 K/uL (0.0-1.0); MONOCYTES % (AUTO) 16.9 % (1.7-9.3); NEUTROPHILS # (AUTO) 3.4 K/uL (1.8-7.7); NEUTROPHILS % (AUTO) 68.5 % (40.0-70.0); RED BLOOD CELL COUNT(AUTO) 3.08 MIL/uL (4.2-6.2); RED CELL DISTRIBUTION WIDTH 19.9 % (9.0-15.0)
[2022-01-11 07:46] LABS: CALCIUM 6.6 mg/dL (8.4-11.0)
[2022-01-11 08:58] LABS: PLATELET COUNT (AUTO) 33 K/uL (130-430)
[2022-01-11] MEDS: ASPIRIN 81 MG TAB.CHEW PO SCH (09:00)
[2022-01-11] MEDS: HEPARIN SODIUM,PORCINE 5,000 UNITS/ML VIAL SUBCUT SCH (09:00)
[2022-01-11] MEDS: ALLOPURINOL 100 MG TABLET (ZYLOPRIM) PO SCH (10:14)
[2022-01-11] MEDS: PANTOPRAZOLE SODIUM 40 MG TAB PO SCH (10:14)
[2022-01-11] MEDS: ATORVASTATIN 20 MG TABLET PO SCH (10:14)
[2022-01-11] MEDS: FUROSEMIDE 20 MG/2 ML VIAL IVP SCH (10:15)
[2022-01-11] MEDS: AMIODARONE HCL 200 MG TABLET PO SCH ×2 (10:16→21:51)
[2022-01-11] MEDS: CARVEDILOL 12.5 MG TABLET (COREG) PO SCH ×2 (10:16→21:51)
[2022-01-11] MEDS: CEFEPIME 1 GM in D5W 50 ML IV SCH (12:47)
--- NOTE | 2022-01-11 13:40 | NUR ---
CM: F/U with [facility]: per Sabrina: 2 cardiologists declined to accept the pt, said despite the history of AVR, the md felt like the pt has other comorbidities that may be not related the heart. Addendum: 01/12/22 at 1532 by Rula James RN Dr Wright made aware of the above info today 01/12 at 11 am. The md stated , pt is improving and stable, okay with no xfer for now. DCP to home vs snf.
--- NOTE | 2022-01-11 20:10 | NUR ---
@1920 Change of shift report received at bedside from GRACIE RN, pt awake alert oriented denies pain vitals stable education on care plan he verbalized understanding bed in low position, call light at reach, SR HR 70'S, afebrile, O2 3lnc no sign of shortness of breadth O2 SAT 95%, lake to gravity low urine output as per report received hemodialysis done today with net output 2.6lters. Ate 65% of dinner fed himself as at this time will continue to monitor and treat as per care plan.
[2022-01-12] VITALS (26 sets, daily range): BP systolic 92–146
[2022-01-12] MEDS: LEVOTHYROXINE SODIUM 0.025 MG TABLET PO SCH (06:50)
[2022-01-12] MEDS: metroNIDAZOLE 500 mg/NS 100 ML IV SCH (06:51)
[2022-01-12] MEDS: D10W 1,000 ML IV SCH (07:01)
--- NOTE | 2022-01-12 07:20 | NUR ---
@0716 Change of shift report given to GRACIE RN pt awake alert oriented vitals signs stable afebrile. Perineal care done assist pt with repositioning in bed no changes in care plan too
[2022-01-12 07:27] LABS: BASOPHILS % (AUTO) 0.8 % (0.0-2.0); EOSINOPHILS # (AUTO) 0.1 K/uL (0.0-0.4); EOSINOPHILS % (AUTO) 0.9 % (0.0-4.0); HEMATOCRIT 27.6 % (36-54); HEMOGLOBIN 8.2 g/dL (14.0-18.0); LYMPHOCYTES # (AUTO) 0.5 K/uL (1.0-5.5); LYMPHOCYTES % (AUTO) 8.3 % (20.5-51.5); MEAN CORPUSCULAR HEMOGLOBIN 28 pg (27-31); MEAN CORPUSCULAR HGB CONC 30 % (32-36); MEAN CORPUSCULAR VOLUME 93 fL (79.0-98.0); MONOCYTES # (AUTO) 0.8 K/uL (0.0-1.0); NEUTROPHILS # (AUTO) 4.2 K/uL (1.8-7.7); RED BLOOD CELL COUNT(AUTO) 2.97 MIL/uL (4.2-6.2); RED CELL DISTRIBUTION WIDTH 19.3 % (9.0-15.0); WHITE BLOOD COUNT (AUTO) 5.6 K/uL (4.8-10.8)
[2022-01-12 07:45] LABS: ALANINE AMINOTRANSFERASE 4 U/L (12-78); ANION GAP 7 (5-15); ASPARTATE AMINOTRANSFERASE 20 U/L (10-37); CHLORIDE 102 mmol/L (98-107); GLUCOSE 109 mg/dL (70-99); PHOSPHORUS 5.7 mg/dL (2.7-4.5); POTASSIUM 3.9 mmol/L (3.5-5.1); SODIUM SERUM 136 mmol/L (136-145); TOTAL BILIRUBIN 0.3 mg/dL (0.0-1.0); UREA NITROGEN, BLOOD 37 mg/dL (8-21)
--- NOTE | 2022-01-12 07:45 | NUR ---
PICC line dressing changed no bleeding, biopatch placed and covered with transparent film. As this RN at the bedside pt mentioned that he wants JOSIAH his son to be his decision maker also explained NORBERTO is an adopted daughter and JOSIAH is biological son. I passed this information to Odette RN in charge and Preston brownlee RN today. Odette GALLEGOS also said she will discussed with die lay out worker
[2022-01-12 08:35] LABS: CALCIUM 6.7 mg/dL (8.4-11.0)
[2022-01-12] MEDS: FUROSEMIDE 20 MG/2 ML VIAL IVP SCH (09:12)
[2022-01-12] MEDS: AMIODARONE HCL 200 MG TABLET PO SCH ×2 (09:13→20:44)
[2022-01-12] MEDS: ATORVASTATIN 20 MG TABLET PO SCH (09:14)
[2022-01-12] MEDS: PANTOPRAZOLE SODIUM 40 MG TAB PO SCH (09:14)
[2022-01-12] MEDS: CARVEDILOL 12.5 MG TABLET (COREG) PO SCH ×2 (09:14→20:44)
[2022-01-12] MEDS: ALLOPURINOL 100 MG TABLET (ZYLOPRIM) PO SCH (09:14)
--- NOTE | 2022-01-12 09:15 | NUR ---
Called Dr Rodriguez with a consult,spoke with Erika from the exchange
[2022-01-12 10:04] LABS: PLATELET COUNT (AUTO) 24 K/uL (130-430)
[2022-01-12] MEDS: CEFEPIME 1 GM in D5W 50 ML IV SCH (11:33)
--- NOTE | 2022-01-12 13:37 | NUR ---
Dietitian Recommendations * Renal, Mechanical Soft diet * Yogurt TID w/ meals to promote additional caloric/protein intakes LP, RD Please refer to Nutrition Assessment for details. Addendum: 01/12/22 at [address] Amended: Links added.
[2022-01-12] MEDS: SUCRALFATE 1 GM TABLET PO SCH ×2 (18:19→20:44)
[2022-01-13] VITALS (22 sets, daily range): BP systolic 108–155
[2022-01-13] MEDS: LEVOTHYROXINE SODIUM 0.025 MG TABLET PO SCH (06:33)
[2022-01-13] MEDS: SUCRALFATE 1 GM TABLET PO SCH ×4 (06:33→21:16)
[2022-01-13 07:05] LABS: INR 1.4 (0.80-1.20); PROTHROMBIN TIME 14.4 SECS (9.5-12.5)
[2022-01-13 07:08] LABS: BASOPHILS % (AUTO) 0.7 % (0.0-2.0); EOSINOPHILS # (AUTO) 0.1 K/uL (0.0-0.4); EOSINOPHILS % (AUTO) 1.2 % (0.0-4.0); HEMATOCRIT 28.2 % (36-54); HEMOGLOBIN 8.4 g/dL (14.0-18.0); LYMPHOCYTES # (AUTO) 0.5 K/uL (1.0-5.5); LYMPHOCYTES % (AUTO) 7.3 % (20.5-51.5); MEAN CORPUSCULAR HEMOGLOBIN 28 pg (27-31); MEAN CORPUSCULAR HGB CONC 30 % (32-36); MEAN CORPUSCULAR VOLUME 92 fL (79.0-98.0); MONOCYTES % (AUTO) 14.6 % (1.7-9.3); NEUTROPHILS % (AUTO) 76.2 % (40.0-70.0); RED BLOOD CELL COUNT(AUTO) 3.07 MIL/uL (4.2-6.2); WHITE BLOOD COUNT (AUTO) 6.6 K/uL (4.8-10.8)
[2022-01-13] MEDS: D10W 1,000 ML IV SCH ×2 (07:45→22:41)
[2022-01-13 08:58] LABS: PLATELET COUNT (AUTO) 19 K/uL (130-430)
[2022-01-13] MEDS: ALLOPURINOL 100 MG TABLET (ZYLOPRIM) PO SCH (09:25)
[2022-01-13] MEDS: AMIODARONE HCL 200 MG TABLET PO SCH ×2 (09:25→21:17)
[2022-01-13] MEDS: CARVEDILOL 12.5 MG TABLET (COREG) PO SCH ×2 (09:26→21:16)
[2022-01-13] MEDS: ATORVASTATIN 20 MG TABLET PO SCH (09:26)
[2022-01-13] MEDS: FUROSEMIDE 20 MG/2 ML VIAL IVP SCH (09:27)
[2022-01-13 09:44] LABS: ALANINE AMINOTRANSFERASE 4 U/L (12-78); ANION GAP 5 (5-15); ASPARTATE AMINOTRANSFERASE 19 U/L (10-37); CHLORIDE 101 mmol/L (98-107); CREATININE 4.09 mg/dL (0.55-1.30); GLUCOSE 109 mg/dL (70-99); POTASSIUM 3.8 mmol/L (3.5-5.1); SODIUM SERUM 134 mmol/L (136-145); TOTAL BILIRUBIN 0.4 mg/dL (0.0-1.0); UREA NITROGEN, BLOOD 33 mg/dL (8-21)
[2022-01-13 10:01] LABS: CALCIUM 6.9 mg/dL (8.4-11.0)
[2022-01-13] MEDS: CEFEPIME 1 GM in D5W 50 ML IV SCH (12:04)
[2022-01-13] MEDS: METHYLPREDNISOLONE SOD SUCC 40 MG/ML VIAL IVP SCH ×2 (14:46→21:15)
[2022-01-14] MEDS: METHYLPREDNISOLONE SOD SUCC 40 MG/ML VIAL IVP SCH (06:05)
[2022-01-14] MEDS: LEVOTHYROXINE SODIUM 0.025 MG TABLET PO SCH (06:06)
[2022-01-14] MEDS: SUCRALFATE 1 GM TABLET PO SCH ×4 (06:06→21:48)
[2022-01-14] MEDS: INSULIN LISPRO SLIDING SCALE 100 UNITS/ML VIAL (humaLOG) SUBCUT PRN ×3 (06:25→17:28)
[2022-01-14 06:39] LABS: ALANINE AMINOTRANSFERASE 5 U/L (12-78); ANION GAP 8 (5-15); ASPARTATE AMINOTRANSFERASE 14 U/L (10-37); CHLORIDE 98 mmol/L (98-107); CREATININE 4.69 mg/dL (0.55-1.30); GLUCOSE 200 mg/dL (70-99); PHOSPHORUS 6.1 mg/dL (2.7-4.5); SODIUM SERUM 131 mmol/L (136-145); TOTAL BILIRUBIN 0.3 mg/dL (0.0-1.0); UREA NITROGEN, BLOOD 43 mg/dL (8-21)
[2022-01-14 06:49] LABS: TOTAL IRON BIND. CAPACITY 129 ug/dL (250-450)
[2022-01-14 08:00] VITALS: BP_SYST 142
--- NOTE | 2022-01-14 08:00 | NUR ---
INITIAL NOTES PATIENT IS AWAKE, ALERT, AND ORIENTED. PATIENT IS TUOLUMNE. DENIES ANY PAIN. NO S/S OF DISTRESS NOTED. NO SOB. PATIENT ON BEDREST, VITAL SIGNS OBTAINED DOCUMENTED. SPO2 IS AT 92-93% WITH 2 L O2 VIA NASAL CANNULA. PATIENT HAS BEEN CLEANED AND REPOSITIONED. HOB ELEVATED, BREAKFAST AT BEDSIDE TABLE. SAFETY PRECAUTIONS IN PLACE AND CALL LIGHT WITHIN REACH.
[2022-01-14 08:05] LABS: BASOPHILS % (AUTO) 0.2 % (0.0-2.0); EOSINOPHILS % (AUTO) 0.8 % (0.0-4.0); HEMATOCRIT 28.7 % (36-54); HEMOGLOBIN 8.7 g/dL (14.0-18.0); LYMPHOCYTES # (AUTO) 0.2 K/uL (1.0-5.5); LYMPHOCYTES % (AUTO) 4.4 % (20.5-51.5); MEAN CORPUSCULAR HEMOGLOBIN 28 pg (27-31); MEAN CORPUSCULAR HGB CONC 30 % (32-36); MEAN CORPUSCULAR VOLUME 92 fL (79.0-98.0); MONOCYTES % (AUTO) 0.7 % (1.7-9.3); NEUTROPHILS # (AUTO) 3.2 K/uL (1.8-7.7); RED BLOOD CELL COUNT(AUTO) 3.11 MIL/uL (4.2-6.2); RED CELL DISTRIBUTION WIDTH 18.7 % (9.0-15.0); WHITE BLOOD COUNT (AUTO) 3.5 K/uL (4.8-10.8)
[2022-01-14 09:40] LABS: PLATELET COUNT (AUTO) 45 K/uL (130-430)
--- NOTE | 2022-01-14 10:30 | NUR ---
CRITICAL LAB PAGED AND SPOKE TO DR. RIVERS. AWARE OF LOW PLATELET COUNT. PER MD, NO NEW ORDERS.
--- NOTE | 2022-01-14 10:49 | NUR ---
Discharge Planning: DCP faxed pt referral to [facility] [phone] DCP to follow up Addendum: 01/14/22 at 1403 by Allison Wilkinson DP [facility] [phone] accepted pt Rm 6A. [facility] will not take on hospice DCP made CM aware.
[2022-01-14] MEDS: CARVEDILOL 12.5 MG TABLET (COREG) PO SCH ×2 (10:55→21:50)
[2022-01-14] MEDS: AMIODARONE HCL 200 MG TABLET PO SCH ×2 (10:56→21:49)
[2022-01-14] MEDS: ALLOPURINOL 100 MG TABLET (ZYLOPRIM) PO SCH (10:56)
[2022-01-14] MEDS: ATORVASTATIN 20 MG TABLET PO SCH (10:56)
[2022-01-14] MEDS: FUROSEMIDE 20 MG/2 ML VIAL IVP SCH (11:21)
[2022-01-14 12:00] VITALS: BP_SYST 153
--- NOTE | 2022-01-14 12:00 | NUR ---
NOTES PATIENT IS EATING LUNCH DENIES ANY PAIN. NO SOB OR DISTRESS NOTED. WILL CONTINUE TO MONITOR. SAFETY PRECAUTIONS IN PLACE AND CALL LIGHT WITHIN REACH.
--- NOTE | 2022-01-14 12:16 | NUR ---
DISCHARGE PLANNING Order to dc to snf. Spoke with pt at bedside & discussed dc plan for SNF. Pt stating wants to know if he has the right to . Pt not verbalizing suicidal ideation, wanting to know if can choose to . Explained SNF & hospice, pt refusing to cont hemodialysis. Pt states would like to speak with [facility], does not want to give auth for SNF will speak with [facility] first. Informed [facility], will see pt. Informed Dr Tirado, states he spoke with pt earlier this am & is agreeable with SNF. States pt is Depressed & will have Psychiatrist see him at SNF.
[2022-01-14] MEDS: CEFEPIME 1 GM in D5W 50 ML IV SCH (12:19)
[2022-01-14 14:27] LABS: NEUTROPHILS % (AUTO) 93.9 % (40.0-70.0)
--- NOTE | 2022-01-14 15:08 | NUR ---
Material Lister LOAD OUT SUPERVISOR was asked by the Audelia MCCLURE to speak to the pt. who expressed he no longer wanted to received HD and wanted to . LOAD OUT SUPERVISOR introduced self to pt. at bedside and gave him her card. Pt. confirmed he no longer wanted HD and wanted to . He did not want treatment and was asking for Hospice services. . Pt. asked LOAD OUT SUPERVISOR if she could call his son, Darryn, to get him involved in his decision to ask for hospice services. Pt. did not have a plan to kill himself. He just did not want to continue life this way. Pt. stated he has no quality of life anymore. LOAD OUT SUPERVISOR thanked him for his time and let him know she will ask the CM and for a Hospice Eval. LOAD OUT SUPERVISOR met with pts. [id number], Allyn and pts. granddaughter who was visting. LOAD OUT SUPERVISOR brought her back to the conference room. Allyn was aware of pts. wants to discontinue with HD and began crying. LOAD OUT SUPERVISOR shared with her it was good that pt was able to tell us what he wants as oppose to having treatment that he did not consent to. LOAD OUT SUPERVISOR called and spoke to pts. son Darryn who is aware of his fathers whishes and respects them. LOAD OUT SUPERVISOR spoke to CM who stated [place] will not take this pt with Hospice. CM will look for another SNF that will take pt. and hospice services. LOAD OUT SUPERVISOR will remain available.
[2022-01-14 16:00] VITALS: BP_SYST 118
--- NOTE | 2022-01-14 16:00 | NUR ---
NOTES CLEAN AND REPOSITIONED PATIENT. VITAL SIGNS OBTAINED. NO DISTRESS OR SOB NOTED. DENIES PAIN. PATIENT IN A COMFORTABLE POSITION. FAMILY AT BEDSIDE. SAFETY PRECAUTIONS IN PLACE AND CALL LIGHT WITHIN REACH.
[2022-01-14 18:07] LABS: BILIRUBIN,URINE NEGATIVE (NEGATIVE); BLOOD, URINE 1+ (NEGATIVE); CLARITY/URINE CLEAR (CLEAR); COLOR,URINE YELLOW (YELLOW); GLUCOSE,URINE TRACE (NEGATIVE); KETONES,URINE NEGATIVE (NEGATIVE); LEUKOCYTE ESTERASE ,URINE TRACE (NEGATIVE); NITRITE, URINE NEGATIVE (NEGATIVE); PH,URINE 5.5 (5.0-8.0); PROTEIN URINE 2+ (NEGATIVE); UROBILINOGEN,URINE 0.2 (0.2-1.0)
[2022-01-14 18:23] LABS: BACTERIA,URINE FEW /HPF (None Seen); WBC,URINE 0-3 /HPF (0-3)
--- NOTE | 2022-01-14 19:42 | NUR ---
CLOSING NOTES PATIENT IS EATING DINNER. NO S/S OF DISTRESS. DENIES ANY PAIN. NO FACIAL GRIMACE NOTED. PATIENT IS STABLE. SAFETY PRECAUTIONS IN PLACE AND CALL LIGHT WITHIN REACH. ENDORSED CONTINUING OF CARE TO INCOMING NURSE.
[2022-01-14] MEDS: predniSONE 20 MG TABLET PO SCH (21:49)
[2022-01-15] VITALS: BP_SYST 141
[2022-01-15 00:04] VITALS: BP_SYST 119
[2022-01-15 06:02] LABS: BASOPHILS % (AUTO) 0.1 % (0.0-2.0); HEMATOCRIT 28.6 % (36-54); HEMOGLOBIN 8.7 g/dL (14.0-18.0); LYMPHOCYTES # (AUTO) 0.2 K/uL (1.0-5.5); MEAN CORPUSCULAR HEMOGLOBIN 28 pg (27-31); MEAN CORPUSCULAR HGB CONC 31 % (32-36); MEAN CORPUSCULAR VOLUME 90 fL (79.0-98.0); MONOCYTES # (AUTO) 0.2 K/uL (0.0-1.0); MONOCYTES % (AUTO) 2.9 % (1.7-9.3); PLATELET COUNT (AUTO) 52 K/uL (130-430); RED BLOOD CELL COUNT(AUTO) 3.16 MIL/uL (4.2-6.2); RED CELL DISTRIBUTION WIDTH 18.9 % (9.0-15.0); WHITE BLOOD COUNT (AUTO) 6.4 K/uL (4.8-10.8)
[2022-01-15 06:30] VITALS: BP_SYST 120
[2022-01-15 06:31] LABS: ANION GAP 8 (5-15); CALCIUM 7.9 mg/dL (8.4-11.0); CHLORIDE 97 mmol/L (98-107); CREATININE 5.65 mg/dL (0.55-1.30); GLUCOSE 166 mg/dL (70-99); PHOSPHORUS 7.1 mg/dL (2.7-4.5); POTASSIUM 3.5 mmol/L (3.5-5.1); SODIUM SERUM 130 mmol/L (136-145); UREA NITROGEN, BLOOD 59 mg/dL (8-21)
[2022-01-15] MEDS: LEVOTHYROXINE SODIUM 0.025 MG TABLET PO SCH (06:31)
[2022-01-15] MEDS: SUCRALFATE 1 GM TABLET PO SCH (06:46)
[2022-01-15] MEDS: predniSONE 20 MG TABLET PO SCH (08:35)
[2022-01-15] MEDS: CARVEDILOL 12.5 MG TABLET (COREG) PO SCH (08:36)
[2022-01-15] MEDS: FUROSEMIDE 20 MG/2 ML VIAL IVP SCH (08:36)
[2022-01-15] MEDS: ALLOPURINOL 100 MG TABLET (ZYLOPRIM) PO SCH (08:37)
[2022-01-15] MEDS: ATORVASTATIN 20 MG TABLET PO SCH (08:37)
[2022-01-15] MEDS: AMIODARONE HCL 200 MG TABLET PO SCH (08:37)
--- NOTE | 2022-01-15 09:21 | NUR ---
Discharge Planning: DCP arrange transport with [facility] [phone] BLS 11:30AM P/U to [place] [address] 6A. DCP made CM and nurse aware, patient packet taken to nurse station. Disposition 03
[2022-01-15 10:48] LABS: FERRITIN 1095 ng/mL (30-400)
[2022-01-15 12:05] VITALS: BP_SYST 144
--- NOTE | 2022-01-16 08:16 | NUR ---
Dispo code 03
== END 2022-01-15 12:25 | DRG 871 ==
LOC: SED 12:56 → STU 17:47 → SIC 01-08 10:43 → STU 01-13 21:49
PROVIDERS: ADMIT General Practice; ATTEND General Practice
PROC: 02HV33Z Insertion of Infusion Device into Superior Vena Cava, Percutaneous Approach (ICD-10-PCS; 2022-01-07)
PROC: B548ZZA Ultrasonography of Superior Vena Cava, Guidance (ICD-10-PCS; 2022-01-07)
PROC: 5A1D70Z Performance of Urinary Filtration, Intermittent, Less than 6 Hours Per Day (ICD-10-PCS; principal; 2022-01-09)
PROC: 5A1D70Z Performance of Urinary Filtration, Intermittent, Less than 6 Hours Per Day (ICD-10-PCS; 2022-01-10)
PROC: 5A1D70Z Performance of Urinary Filtration, Intermittent, Less than 6 Hours Per Day (ICD-10-PCS; 2022-01-11)
PROC: 5A1D70Z Performance of Urinary Filtration, Intermittent, Less than 6 Hours Per Day (ICD-10-PCS; 2022-01-12)
DX: A41.9 Sepsis, unspecified organism (principal); E43 Unspecified severe protein-calorie malnutrition; G93.41 Metabolic encephalopathy; I50.43 Acute on chronic combined systolic (congestive) and diastolic (congestive) heart failure; N17.0 Acute kidney failure with tubular necrosis; R57.0 Cardiogenic shock; R65.21 Severe sepsis with septic shock; J96.01 Acute respiratory failure with hypoxia; I13.0 Hypertensive heart and chronic kidney disease with heart failure and stage 1 through stage 4 chronic kidney disease, or unspecified chronic kidney disease; N18.4 Chronic kidney disease, stage 4 (severe); K61.1 Rectal abscess; D69.9 Hemorrhagic condition, unspecified; D63.8 Anemia in other chronic diseases classified elsewhere; E78.00 Pure hypercholesterolemia, unspecified; F03.90 Unspecified dementia, unspecified severity, without behavioral disturbance, psychotic disturbance, mood disturbance, and anxiety; E03.9 Hypothyroidism, unspecified; D69.6 Thrombocytopenia, unspecified; E11.42 Type 2 diabetes mellitus with diabetic polyneuropathy; Z20.822 Contact with and (suspected) exposure to COVID-19; K21.9 Gastro-esophageal reflux disease without esophagitis; I25.10 Atherosclerotic heart disease of native coronary artery without angina pectoris; I48.0 Paroxysmal atrial fibrillation; E11.22 Type 2 diabetes mellitus with diabetic chronic kidney disease; I27.20 Pulmonary hypertension, unspecified; Z95.2 Presence of prosthetic heart valve; Z85.038 Personal history of other malignant neoplasm of large intestine; Z79.4 Long term (current) use of insulin; Z68.31 Body mass index [BMI] 31.0-31.9, adult
CPT/HCPCS: 36415; 36600; 70450-TC; 71045; 76376; 76770; 80048; 80053; 80061; 80076; 81000; 82140; 82272; 82533; 82607; 82728; 82746; 82803-TC; 82962; 83036; 83540; 83550; 83605; 83735; 83880; 84100; 84443; 84484; 85025; 85379; 85384; 85610-TC; 85651-TC; 85730-TC; 86022; 86480; 86706; 86803; 87040; 87081; 87340; 90935; 90937; 93005; 93306; 93970; 96374; 99285; G0378; J0692; J1030; J1644; J1815; J1940; J2543; J3370; J3490; J7050; J7060; J7512; P9046; U0003